=== PATIENT | male | born 1950 | race Caucasian/White ===

== ENCOUNTER 2019-08-07 09:12 | Emergency (ER) | payer MEDICARE ==
--- OUTSIDE RECORDS SUMMARY | 2019-08-07 09:41 | XMS REPORT | Continuity of Care Document ---
:1950 External Reference #:[id number] Author Name Katiuska Montiel M.D. Address [address] [place] [address] Care Team Providers Name Role Phone Russell Sahni DO - Family Medicine Care Team Information Senior Net Application Developer Problems Active Problems Provider Date Mixed hyperlipidemia Onset: 07/23/2016 Urinary bladder stone Katiuska Montiel M.D. Onset: 06/14/2019 Benign prostatic hyperplasia Katiuska Montiel M.D. Onset: 05/17/2019 Screening for malignant neoplasm of prostate Katiuska Montiel M.D. Onset: Nathan hematuria Katiuska Montiel M.D. Onset: 05/17/2019 Combined form of senile cataract Gordon Gallegos MD Onset: 08/11/2017 Social History Type Date Description Comments Sex Unknown ETOH Use Denies alcohol use Tobacco Use Start: Unknown Patient has never smoked Recreational Drug Use Never Used Drugs Smoking Status Reviewed: 06/07/19 Patient has never smoked Allergies, Adverse Reactions, Alerts Active Allergies Reaction Severity Comments Date Ambien 07/23/2016 Medications Active Medications SIG Qnty Indications Ordering Provider Date Cialis 1/2 to 1 tablet 30 Unknown 20mg Tablets minutes prior to sexual activity Immunizations Description No Information Available Vital Signs Date Vital Result Comment 06/14/2019 1:07pm BP Systolic 133 mmHg BP Diastolic 79 mmHg Body Temperature 96.9 F Oral Heart Rate 75 /min Respiratory Rate 16 /min Height 71 inches 5'11" Pain Level 0 [place] body weight in kilograms 78 kg O2 % BldC Oximetry 96 % 05/17/2019 10:37am BP Systolic 113 mmHg BP Diastolic 72 mmHg Body Temperature 97.3 F Heart Rate 62 /min Respiratory Rate 17 /min Height 71 inches 5'11" Weight 227.50 lb Pain Level 0 BMI (Body Mass Index) 31.7 kg/m2 BSA (Body Surface Area) 2.23 m2 [place] body weight in kilograms 78 kg O2 % BldC Oximetry 98 % Results Test Acquired Date Facility Test Result H/L Range Note Urine Dipstick 06/14/2019 [facility] Color yellow Yellow Ua Clarity clear Clear Ua Leuko neg Negative Ua Nitrite neg Negative Ua Urobilinogen 0.2 0.2 - 1.0 E.U./dL Ua Protein neg Negative Ua PH 6.0 Low 6.5-7.5 Ua Blood neg Negative Ua Specific [place] 1.020 1.010-1.030 Ua Ketones neg Negative Ua Bilirubin neg Negative Ua Glucose neg Negative Basic Metabolic Panel 05/17/2019 [facility] Glucose 96 mg/dL Normal 74-106 1 [address] [place], [place] [id number] [phone] BUN 20 mg/dL High 7-18 Creatinine 1.1 mg/dL Normal 0.6-1.3 Glom Filtration Rate, Estimate >60 mL/min >60 If >60 mL/min >60 2 BUN/Creat 18.1 ratio Sodium 136 mmol/L Normal 136-145 Potassium 4.0 mmol/L Normal 3.5-5.1 Chloride 107 mmol/L Normal 98-107 Carbon Dioxide 24 mmol/L Normal 21-32 Anion Gap 5 mEq/L Low 8-16 Calcium 9.4 mg/dL Normal 8.5-10.1 Laboratory test 05/17/2019 [facility] Prostate 3.65 ng/mL < 4.0 3 finding [address] [facility] [place] [address] Antigen [phone] Urine Dipstick 05/17/2019 [facility] Ua Color Yellow Yellow Ua Clarity Clear Clear Ua Leuko Negative Negative Ua Nitrite Negative Negative Ua Urobilinogen 0.2 0.2 - 1.0 E.U./dL Ua Protein Negative Negative Ua PH 5.5 Low 6.5-7.5 Ua Blood Negative Negative Ua Specific [place] 1.015 1.010-1.030 Ua Ketones Negative Negative Ua Bilirubin Negative Negative Ua Glucose Negative Negative 1 R31.0 Z12.5 2 Note: Persistent reduction for 3 months or more in an eGFR <60 mL/min/1.73 m2 defines CKD. Patients with eGFR values >/=60 mL/min/1.73 m2 may also have CKD if evidence of persistent proteinuria is present. The original MDRD equation for estimated GFR is not valid for patients less than 18 years of age. Additional information may be found at www.kdoqi.org. 3 THIS ASSAY IS NOT INTENDED A CANCER SCREENING TEST The concentration of PSA in a given specimen, determined with assays from different manufacturers, can vary due to differences in assay methods and reagent specificity. Values obtained from different assay methods cannot be used interchangeably. Method: [employer] [place] Chemiluminescent immunoassay. Procedures Date Code Description Status 06/14/2019 70306 Cystoscopy Completed 05/17/2019 60454 Measurement Post Voiding Residual Urine By Completed Ultrasound,Non-Imaging 05/17/2019 46068 complex uroflowmetry electronic Completed Medical Devices Description No Information Available Encounters Type Date Location Provider Dx Diagnosis Office Visit 06/14/2019 1:00p Urology Katiuska Montiel M.D. R31.0 Gross hematuria N40.1 Benign prostatic hyperplasia with lower urinary tract symp N21.0 Calculus in bladder Office Visit 05/17/2019 11:15a Urology Katiuska Montiel M.D. R31.0 Gross hematuria Z12.5 Encounter for screening for malignant neoplasm of prostate N40.1 Benign prostatic hyperplasia with lower urinary tract symp Assessments Date Code Description Provider 06/14/2019 R31.0 Gross hematuria Katiuska Montiel M.D. 06/14/2019 N40.1 Benign prostatic hyperplasia with lower Katiuska Montiel M.D. urinary tract symptoms 06/14/2019 N21.0 Calculus in bladder Katiuska Montiel M.D. 05/17/2019 R31.0 Gross hematuria Katiuska Montiel M.D. 05/17/2019 Z12.5 Encounter for screening for malignant neoplasm Katiuska Montiel M.D. of prostate 05/17/2019 N40.1 Benign prostatic hyperplasia with lower Katiuska Montiel M.D. urinary tract symptoms Plan of Treatment 06/14/2019 - Katiuska Montiel M.D.R31.0 Gross hematuriaComments:Patient completed a hematuria workup today and most likely the blood is due to BPH and bladder hdlyntB76.1 Benign prostatic hyperplasia with lower urinary tract symptomsComments:Discussed with the patient options of management of his BPH. Given that he is forming stones I didrecommend doing a TURP since the prostate is 118 g in size, and we discussed the risks and benefits of a TURP and the patient will think about it.N21.0 Calculus in bladderComments:Patient has numerous bladder stones and those are unlikely to pass but told the patient if he chooses to have a TURP the stones will be removed at that time. Functional Status Description No Information Available Mental Status Description No Information Available Referrals Description No Information Available
[2019-08-07 09:45] VITALS: BP 146/101
--- NOTE | 2019-08-07 10:08 | UC ---
Cardiac HPI - HPI Summary HPI Summary: 69-year-old male comes in with a chief complaint of left-sided chest pain. Yesterday he slipped and fell on the ice striking his left lateral chest. Said pain at that site ever since. Pain is worse with coughing breathing or moving. No complaint of any shortness of breath at rest. Patient chronically has some blood in his urine and he reports the urologist told him be it's because of kidney stones. Patient reports the amount of blood in the urine has not changed since the fall. Denies any abdominal pain or any change in eating and drinking or urine or bowels. No fevers or chills. Has not tried any pain medications. - History of Current Complaint Chief Complaint: UCGeneralIllness Stated Complaint: S/P FALL LEFT RIB PAIN Time Seen by Provider: 08/07/19 09:44 Pain Intensity: 2 - Allergy/Home Medications Allergies/Adverse Reactions: Allergies Allergy/AdvReac Type Severity Reaction Status Date / Time No Known Allergies Allergy Unverified 08/07/19 09:44 PMH/Surg Hx/FS Hx/Imm Hx Previously Healthy: Yes - chronic hematuria due to kidney stones per patient - Surgical History Surgical History: Yes Surgery Procedure, Year, and Place: eye surgery. Tonsils and adenoids - Family History Known Family History: Positive: Non-Contributory - Social History Alcohol Use: None Substance Use Type: None Smoking Status (MU): Never Smoked Tobacco Review of Systems All Other Systems Reviewed And Are Negative: Yes Constitutional: Positive: Negative Skin: Positive: Negative Eyes: Positive: Negative ENT: Positive: Negative Respiratory: Positive: Negative Cardiovascular: Positive: Chest Pain Gastrointestinal: Positive: Negative Genitourinary: Positive: Hematuria Motor: Positive: Negative Neurovascular: Positive: Negative Musculoskeletal: Positive: Negative Neurological: Positive: Negative Psychological: Positive: Negative Is Patient Immunocompromised?: No Physical Exam Triage Information Reviewed: Yes Appearance: Well-Appearing, Well-Nourished, Pain Distress - Mild tenderness to palpation the left ribs and also with movement or deep breath. Vital Signs: Initial Vital Signs Temp 97.1 F 08/07/19 09:42 Pulse 81 08/07/19 09:42 Resp 22 08/07/19 09:42 BP 146/101 08/07/19 09:42 Pulse Ox 96 08/07/19 09:42 Vital Signs Reviewed: Yes Eye Exam: Normal Eyes: Positive: Conjunctiva Clear Neck: Positive: Supple Respiratory: Positive: Lungs clear, Normal breath sounds, No respiratory distress Cardiovascular: Positive: RRR Abdomen Description: Positive: Nontender, Soft Musculoskeletal: Positive: Strength Intact, ROM Intact Neurological: Positive: Alert, Muscle Tone Normal Psychological: Positive: Age Appropriate Behavior Skin Exam: Normal - Assessment/Plan Course Of Treatment: Cylinder Press Operator: Pawan Beth F ([id number]) Business Analyst: AD ( NUANCE) Report Date: 08/07/2019 09:47:00 Report Status: Final ====== Start of Report Content Patient Name: BO MONK Medical Record# : [id number] Ordering Physician: Damir Best MD Acct.#: [id number] : 1950 Age: 69 Sex: M Location: [facility] Exam Date: 08/07/19920 ADM Status: REG ER Order Information: RIBS LT UNI W/PA CH MIN 3 VWS Accession Number: [id number] CPT: 21021 INDICATION: Pain status post fall. COMPARISON: Comparison is made with a prior chest x-ray study from October 02, 2006. TECHNIQUE: 4 views of the left ribs and dual-energy PA views of the chest were obtained. FINDINGS: There are old healed fractures of the left lateral fifth through seventh ribs. No acute fracture is seen. The lungs are underinflated. There is mild bibasilar subsegmental atelectasis. No pleural effusion or pneumothorax is seen. IMPRESSION: NO EVIDENCE FOR ACUTE RIB FRACTURE. < Electronically signed by Pawan Beth MD in OV> 08/07/19942 Dictated By: Pawan Beth MD Dictated Date/Time: 08/07/19939 Transcribed Date/Time: 02/16 Copy to: CC:Russell Sahni DO; Damir Best MD Imaging - [facility] Imaging - [facility] Imaging - [facility] [address] [facility] [place] [address] ph ([phone]) ph ([phone]) ph ([phone]) End of Report Content ========= I discussed the x-rays with the patient. No fracture or acute disease process seen by radiologist. We'll treat for rib contusion. Take ibuprofen and then [place] if needed. Patient's at home with an incentive spirometer. Patient reports chronic blood in the urine. Let him know if that increased or had any other concerns he needs to get that reevaluated. Also let him know if he had any abdominal pain fevers chills shortness breath did not feel well needs to get reevaluated right away. Patient will be following up with his primary care physician. - Clinical Impression Provider Diagnosis: Contusion of rib on left side Discharge ED - Sign-Out/Discharge Documenting (check all that apply): Patient Departure All imaging exams completed and their final reports reviewed: Yes - Discharge Plan Condition: Stable Disposition: HOME Prescriptions: HYDROcodone/ACETAMIN 5-325 MG* [[place] 5-325 TAB*] 1 tab PO Q4H PRN #30 tab MDD 6 PRN Reason: Pain - Moderate Patient Education Materials: Rib Contusion (ED) Referrals: Russell Sahni DO [Primary Care Provider] - Additional Instructions: FOLLOW UP WITH YOUR DOCTOR. TAKE IBUPROFEN 600MG EVERY 6 HOURS NEEDED. USE THE INCENTIVE SPIROMETER EVERY 4 HOURS WHILE AWAKE TO HELP AVOID RESPIRATORY INFECTION GET REEVALUATED SOONER IF NOT IMPROVING OR WORSE; PAIN, FEVER, SHORTNESS OF BREATH, YOU FEEL ILL, ABDOMINAL PAIN, CHANGE IN THE BLOOD IN YOUR URINE OR ANY QUESTIONS OR CONCERNS. - Billing Disposition and Condition Condition: STABLE Disposition: Home
== END 2019-08-07 10:20 | disposition home or self-care (01) ==
LOC: UCCORT 09:12
DX: S20.212A Contusion of left front wall of thorax, initial encounter (principal); R31.9 Hematuria, unspecified; N20.0 Calculus of kidney; W00.0XXA Fall on same level due to ice and snow, initial encounter; Y92.9 Unspecified place or not applicable
CPT/HCPCS: 99212; G0463